=== PATIENT | female | born 1950 | race Caucasian/White ===

== ENCOUNTER 2019-09-25 06:53 | Outpatient (CLI) | payer MEDICARE | END 2019-09-25 23:59 | disposition home or self-care (01) | LOC: CFH 06:53 | PROVIDERS: ATTEND Internal Medicine Cardiovascular Disease | DX: I25.10 Atherosclerotic heart disease of native coronary artery without angina pectoris (principal); I34.1 Nonrheumatic mitral (valve) prolapse; E78.2 Mixed hyperlipidemia; J84.10 Pulmonary fibrosis, unspecified | CPT/HCPCS: 75571; 78452; 93017; 93306; A9502 ==

== ENCOUNTER 2020-03-11 19:01 | Emergency (ER) | payer MEDICARE ==
[~2020-03-11] VITALS: Ht 157.5 cm; Wt 72.5 kg
[2020-03-11 19:03] VITALS: BP 138/90
[2020-03-11] MEDS ORDERED: ASPI-515 PO (19:25)
--- NOTE | 2020-03-11 19:30 | NUR ---
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 PT TO ROOM, WARM BLANKET GIVEN CALL SPICER IN REACH AND AWARE OF USE, LAB TO BEDSIDE FOR DRAW, SUGAR PACKETS TO PROVIDER.
[2020-03-11 19:38] LABS: BASOPHILS # (AUTO) 0.05 x10^3/uL (0-0.1); BASOPHILS % (AUTO) 1 % (0-1); EOSINOPHILS # (AUTO) 0.16 x10^3/uL (0-0.4); EOSINOPHILS % (AUTO) 2 % (1-7); LYMPHOCYTES # (AUTO) 2.85 x10^3/uL (1-3.4); LYMPHOCYTES % (AUTO) 28 % (22-44); MD NO; MEAN CORPUSCULAR HEMOGLOBIN 30.5 pg (27.0-34.8); MEAN CORPUSCULAR VOLUME 92.5 fL (80-100); MEAN PLATELET VOLUME 9.8 fL (7.4-10.4); MONOCYTES # (AUTO) 0.78 x10^3/uL (0.2-0.8); MONOCYTES % (AUTO) 8 % (2-9); NEUTROPHILS # (AUTO) 6.46 x10^3/uL (1.8-6.8); NEUTROPHILS % (AUTO) 63 % (42-75); PLATELET COUNT 262 x10^3/uL (130-400); RED BLOOD COUNT 4.52 x10^6/uL (3.82-5.3); RED CELL DISTRIBUTION WIDTH 14.1 % (9.6-15.2)
[2020-03-11 19:46] LABS: ALANINE AMINOTRANSFERASE 26 U/L (12-78); ALBUMIN 4.1 g/dL (3.4-5.0); ANION GAP 9 mmol/L (5-15); CALCIUM 9.6 mg/dL (8.5-10.1); CHLORIDE 108 mmol/L (98-107); CREATININE 0.83 mg/dL (0.55-1.02)
[2020-03-11 19:49] LABS: ALKALINE PHOSPHATASE 60 U/L (45-117); BILIRUBIN,TOTAL 0.4 mg/dL (0.2-1.0); TOTAL PROTEIN 7.7 g/dL (6.4-8.2)
--- NOTE | 2020-03-11 20:18 | NUR ---
PATIENT FOUND AT DISCHARGE DESK. PATIENT WAS NOT AWARE SHE NEEDED TO WAIT FOR DISCAHRGE PAPERWORK. NO NOTED ACUTE DISTRESS. AMBULATORY TO DISCHARGE DESK WITHOUT COMPLICATIONS.
== END 2020-03-11 20:20 | disposition home or self-care (01) ==
LOC: ED 20:05
DX: K62.3 Rectal prolapse (principal)
CPT/HCPCS: 36415; 80053; 85025; 99283